=== PATIENT | male | born 1990 | race Caucasian/White ===

== ENCOUNTER 2024-12-15 11:44 | Emergency (ER) | payer OTHER ==
[~2024-12-15] VITALS: Ht 165.1 cm; Wt 64.4 kg
--- NOTE | 2024-12-15 12:01 | ERN ---
ED Note History of Present Illness Stated Complaint: HEADACHE Chief Complaint: Headache Time Seen by MD: 11:47 Time Seen by Midlevel: 11:48 Dictation: 34-year-old male presents to the emergency department due to reported having a tense like/sharp pain to the base of the occipital area that began 2 days ago. He states that he was in the process of lifting an object when he felt a sharp pain. As per the patient, the pain is 100% reproducible with palpation and twisting his head to the right. At this time, he rates his level of discomfort as an 8/10. Currently, he denies having any fever, chills, nausea vomiting or changes in vision. Upon initial evaluation, the patient presents with a normal neurologic examination and in no acute distress. 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: None (This week) Past Medical History Past Medical History: No Pertinent History Surgical History: Tonsillectomy Surgical History Other: RT FOOT SX, RT SHOULDER SX, TESTICULAR SX PSYCH History: no pertinent psych hx RN Note Reviewed/Agreed w/PFSH: Yes Review of System Dictation Neuro: Headache Initial Vital Sign VS Vital Signs Date Time Temp Pulse Resp B/P (MAP) Pulse Ox O2 Delivery O2 Flow Rate FiO2 12/15/24 11:47 97.7 62 18 127/76 97 Room Air 0 12/15/24 11:57 21 Physical Exam Dictation General: awake, alert, NAD Head/Face: Normocephalic, atraumatic Eyes: PERRL, EOMI ENT: Oral mucosa moist Neck: Trachea midline, supple Cardiovascular: RRR, no edema Respiratory: Symmetrical, non-labored Abdomen: Soft, non-tender, non-distended, no guarding. Skin: Warm, dry, good turgor, no rash MS/Extremity: Pulses equal, no cyanosis, neurovascular intact, FROM Neuro: COAx4, GCS 15, steady gait, Psych: Normal behavior, mood, and affect normal ED Course ED Course Orders Procedure Category Date Status Time Ketorolac 60mg/2ml PHA 12/15/24 Complete (Toradol 60mg/2ml) 12:00 Dexamethasone 4mg/Ml PHA 12/15/24 Complete 1ml Vial (Dexametha 12:00 Current Medications Medications (Trade) Dose Ordered Sig/Michele Route PRN Reason Start Time Stop Time Status Last Admin Dose Admin Dexamethasone Sodium Phosphate (dexaMETHasone 4MG/ML 1ML VIAL) 8 mg ONCE ONCE IM 12/15/24 12:00 12/15/24 12:01 DC 12/15/24 12:05 Ketorolac Tromethamine (toRADol 60MG/ 2ML) 60 mg ONCE ONCE IM 12/15/24 12:00 12/15/24 12:01 DC 12/15/24 12:06 Vital Signs Date Time Temp Pulse Resp B/P (MAP) Pulse Ox O2 Delivery O2 Flow Rate FiO2 12/15/24 11:57 98.2 65 16 124/72 98 Room Air* 0 21 12/15/24 11:47 97.7 62 18 127/76 97 Room Air 0 Medical Decision Making MDM MDM: Differential diagnosis: Acute headache, patient headache, strain. Rationale: Tests considered and ordered secondary to shared decision making include: Previous outside records reviewed: Old ER visits. Risk of complication and/or morbidity or mortality of patient management: None Medications-Per medication reconciliation Need for hospitalization: Patient does not meet criteria for hospitalization. Need for emergency major/minor surgery: No There are no social concerns with this patient. Prescription drug management Prescriptions will include symptomatic care Patient's prior external medical records from other ER visits were reviewed by me as indicated. Prior testing and results from previous visits were reviewed. Prior tests were taken into account with medical decision making and resource utilization, independent historian/historians were used to obtain complete medical history. I independently interpreted the test that were performed, results were reviewed by me and considered findings on radiology if ordered. Medical management and examination interpretation discussions were had by me with other qualified healthcare professionals as indicated for the patient's care. DX & DISP Disposition: Discharge Departure Impression: Primary Impression: Acute headache Condition: Stable Time of Disposition: 13:03 JACOB GOMEZ Dec 15, 2024 12:01
[2024-12-15 13:15] VITALS: BP 127/69; PULSE 62; RESP 16; TEMP 98.1; O2SAT 98
== END 2024-12-15 13:22 | disposition home or self-care (01) ==
LOC: EDH 11:44
DX: R51.9 Headache, unspecified (principal); Z90.89 Acquired absence of other organs
CPT/HCPCS: 99284; 96372 ×2; J1885; J1100